=== PATIENT | male | born 2000 | race Two or more races ===

== ENCOUNTER 2024-10-10 22:01 | Emergency (ER) | payer OTHER ==
[~2024-10-10] VITALS: Ht 165.1 cm; Wt 59.7 kg
[2024-10-10 22:18] VITALS: BP 123/73; PULSE 68; RESP 20; O2SAT 98
--- NOTE | 2024-10-10 23:37 | DVH ---
EXAM: XY R FOOT 3 VIEW XRAY CLINICAL INDICATION: TOE INJURY TECHNIQUE: XY R FOOT 3 VIEW XRAY Comparison: None FINDINGS/IMPRESSION: Nondisplaced fracture involving the distal phalanx of the 4th digit.
[2024-10-11] MEDS ORDERED: AUG875T PO (04:58)
[2024-10-11] MEDS ORDERED: IBUP-1456 PO (04:58)
== END 2024-10-10 23:17 | disposition left against medical advice (07) ==
LOC: ER 22:01
DX: S91.111A Laceration without foreign body of right great toe without damage to nail, initial encounter (principal); Z53.21 Procedure and treatment not carried out due to patient leaving prior to being seen by health care provider; X58.XXXA Exposure to other specified factors, initial encounter; Y93.89 Activity, other specified; Y92.89 Other specified places as the place of occurrence of the external cause; Y99.8 Other external cause status
CPT/HCPCS: 73630

== ENCOUNTER 2024-10-11 04:42 | Emergency (ER) | payer OTHER ==
[~2024-10-11] VITALS: Ht 165.1 cm; Wt 59.8 kg
[2024-10-11] MEDS ORDERED: IBUP-1456 PO (04:58)
[2024-10-11] MEDS ORDERED: AUG875T PO (04:58)
--- NOTE | 2024-10-11 05:00 | ED.PDOC ---
Back pain HPI HPI Comments PT PRESENTS TO ED W/CC OF RIGHT TOE LACERATION AFTER CLOSING HIS GARAGE DOOR ON IT. CAP REFILL <3 SEC, BLEEDING CONTROLLED A THIS TIME. 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 Discontinued Scripts Amoxicillin & Pot Clavulanate (AUGMENTIN TABLET) 875 Mg Tb, 875 MG PO BID for 5 Days, #10 TAB Prov:CHELI LOVE 10/11/24 Information Source: Patient Past Medical History PAST MEDICAL HISTORY: Denies Surgical History: Denies all surgeries Constitutional: denies: chills, diaphoresis, fatigue, fever, malaise, sweats, weakness, others EENTM: denies: blurred vision, double vision, ear bleeding, ear discharge, ear drainage, ear pain, ear ringing, eye pain, eye redness, hearing loss, mouth pain, mouth swelling, nasal discharge, nose bleeding, nose congestion, nose pain, photophobia, tearing, throat pain, throat swelling, voice changes, others Respiratory: denies: cough, hemoptysis, orthopnea, SOB at rest, shortness of breath, SOB with excertion, stridor, wheezing, others Cardiovascular: denies: chest pain, dizzy spells, diaphoresis, Dyspnea on exertion, edema, irregular heart beat, left arm pain, lightheadedness, palpitations, PND, syncope, others Gastrointestinal: denies: abdomen distended, abdominal pain, blood streaked bowels, constipated, diarrhea, dysphagia, difficulty swallowing, hematemesis, melena, nausea, poor appetite, poor fluid intake, rectal bleeding, rectal pain, vomiting, others Genitourinary: denies: burning, dysuria, flank pain, frequency, hematuria, incontinence, penile discharge, penile sore, pain, testicle pain, testicle swelling, urgency, others Neurological: denies: dizziness, fainting, headache, left sided numbness, left sided weakness, numbness, paresthesia, pre-existing deficit, right sided numbness, right sided weakness, seizure, speech problems, tingling, tremors, weakness, others Musculoskeletal: denies: back pain, gout, joint pain, joint swelling, muscle pain, muscle stiffness, neck pain, others Integumetry: denies: bruises, change in color, change in hair/nails, dryness, laceration, lesions, lumps, rash, wounds, others Allergic/Immunocompromised: denies: Difficulty Healing, Frequent Infections, Hives, Itching, others Hematologic/Lymphatic: denies: anemia, blood clots, easy bleeding, easy bruising, swollen glands, others Endocrine: denies: excessive hunger, excessive sweating, excessive thirst, excessive urination, flushing, intolerance to cold, intolerance to heat, unexplained weight gain, unexplained weight loss, others Psychiatric: denies: anxiety, bipolar disorder, depression, hopeless, panic disorder, schizophrenia, sleepless, suicidal, others Physical Exam General Appearance: No Apparent Distress, Normal HEENT: Pharynx Normal Neck: Full Range of Motion, Non-Tender Respiratory: Chest Non-Tender, Lungs Clear, No Respiratory Distress, Normal Breath Sounds Cardiovascular: No Murmur, Normal Peripheral Pulses, Regular Rate/Rhythm Breast Exam: Deferred Gastrointestinal: Non Tender, Soft Genitalia: Deferred Pelvic: Deferred Rectal: Deferred Extremities: Normal capillary refill, Normal inspection, Normal range of motion, Non-tender, No pedal edema Musculoskeletal : Location: Right Extremity Location: Little Toe (SUPERFICIAL LACERATION BLEEDING CONTROLLED. 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 Was a procedure done?: No Back Pain Differential Dx Differential Diagnosis: Fracture X-Ray, Labs, Meds, VS Vital Signs Date Time Temp Pulse Resp B/P (MAP) Pulse Ox O2 Delivery O2 Flow Rate FiO2 10/11/24 05:01 98.9 61 12 122/49 (73) 97 98.9 10/11/24 05:01 61 12 97 Room Air* 0 21 10/11/24 04:52 98.9 61 12 122/49 (73) 97 X-Ray, Labs, Meds, VS Comment X-RAY SHOWS DISTAL ASPECT OF RIGHT LESSER TOE. DRESSING PLACED TOE PAWEL-TAPED PATIENT TOLERATED WELL POSITIVE SHE WAS THEN. SCRIPT 800 MG TID PRN FOR THE PAIN. MEDICATION PRESCRIBED SIDE EFFECTS DISCUSSED. ADVISED ON ICE. FOLLOW UP WITH THE PCP IN 2-3 DAYS HE WAS NECESSARY. ER RETURN PRECAUTIONS GIVEN PATIENT INDICATES UNDERSTANDING AND AGREES WITH Time of 1ST Reevaluation: 04:59 Reevaluation 1ST: Improved Patient Education/Counseling: Diagnosis, Treatment, Prognosis, Need For Follow Up Family Education/Counseling: No Family Present Departure 1 Departure Time of Disposition: 04:55 Impression: Primary Impression: Toe fracture, right Qualified Codes: S92.534A - Nondisplaced fracture of distal phalanx of right lesser toe(s), initial encounter for closed fracture Disposition: 01 HOME / SELF CARE / HOMELESS Condition: Stable e-Prescriptions Ibuprofen (Ibuprofen) 800 Mg Tab 1 TAB PO TID PRN for 10 Days, #30 TAB Prov: CHELI LOVE 10/11/24 Discharged With: Self Critical Care Note Critical Care Time?: No Stability Stability form required: No CHELI LOVE Oct 11, 2024 05:00
[2024-10-11 05:01] VITALS: BP 122/49; PULSE 61; RESP 12; TEMP 98.9; O2SAT 97
== END 2024-10-11 05:10 | disposition home or self-care (01) ==
LOC: ER 04:42
DX: S92.591A Other fracture of right lesser toe(s), initial encounter for closed fracture (principal); X58.XXXA Exposure to other specified factors, initial encounter; Y93.89 Activity, other specified; Y92.89 Other specified places as the place of occurrence of the external cause; Y99.8 Other external cause status